=== PATIENT | male | born 1940 | race Hispanic/Latino ===

== ENCOUNTER 2017-11-01 15:28 | Inpatient (IN) | payer MEDICARE ==
--- NOTE | 2017-11-01 16:00 | ED PDOC ---
Arrival/HPI - General Chief Complaint: Trauma Time Seen by Provider: 11/01/17 15:52 Historian: Patient (`) - History of Present Illness Narrative History of Present Illness (Text): 11/01/17 15:58 77yo male with pmhx of hypertension, Diabetes, CAD on anticoagulant who was bib EMS for right hip pain s/p trauma. Patient states he is not sure of how he fell and injured his right hip. He describes pain as soreness. States he is not able to bear weight. He denies left shoulder pain, although he admitted to shoulder pain during triage. He denies hitting head anywhere. Denies LOC, nausea, focal weakness, urinary/fecal incontinence, dizziness, chest pain, any other complaint. Past Medical History - Provider Review Nursing Documentation Reviewed: Yes - Infectious Disease Hx of Infectious Diseases: None - Tetanus Immunization Tetanus Immunization: Unknown - Cardiac Hx Cardiac Disorders: Yes (cad) Hx Hypertension: Yes Other/Comment: quintuple bypass 2001 - Pulmonary Hx Respiratory Disorders: No - Neurological Hx Neurological Disorder: No - HEENT Hx HEENT Disorder: No - Renal Hx Renal Disorder: No - Endocrine/Metabolic Hx Endocrine Disorders: Yes Hx Diabetes Mellitus Type 2: Yes - Hematological/Oncological Hx Blood Disorders: No - Integumentary Hx Dermatological Disorder: No - Musculoskeletal/Rheumatological Hx Falls: No - Gastrointestinal Hx Gastrointestinal Disorders: No - Genitourinary/Gynecological Hx Genitourinary Disorders: No - Psychiatric Hx Psychophysiologic Disorder: No Hx Depression: No Hx Emotional Abuse: No Hx Physical Abuse: No Hx Substance Use: No - Surgical History Hx Coronary Artery Bypass Graft: Yes Hx Coronary Stent: Yes (x1 6 yrs ago) - Anesthesia Hx Anesthesia: Yes Hx Anesthesia Reactions: No Hx Malignant Hyperthermia: No - Suicidal Assessment Feels Threatened In Home Enviroment: No Family/Social History - Physician Review Nursing Documentation Reviewed: Yes Family/Social History: Unknown Family HX Smoking Status: Former Smoker Hx Alcohol Use: No Hx Substance Use: No Hx Substance Use Treatment: No Allergies/Home Meds Allergies/Adverse Reactions: Allergies No Known Allergies Allergy (Verified 12/04/14 11:13) Home Medications: Home Meds Medication Instructions Recorded Confirmed Allopurinol 100 mg PO DAILY 07/03/13 12/04/14 Aspirin [Aspir 81] 1 tab PO DAILY 07/03/13 12/04/14 Atorvastatin [Lipitor] 40 mg PO DAILY 07/03/13 12/04/14 Clopidogrel [Plavix] 75 mg PO DAILY 07/03/13 12/04/14 GlipiZIDE [Glucotrol] 10 mg PO BID 07/03/13 12/04/14 Hydrochlorothiazide/Losartan 1 tab PO DAILY 07/03/13 12/04/14 [Losartan 50MG/HCTZ 12.5MG] Metformin HCl 500 mg PO BID 07/03/13 12/04/14 Metoprolol Succinate XL [Toprol XL] 50 mg PO DAILY 07/03/13 12/04/14 Saxagliptin HCl [Onglyza] 5 mg PO DAILY 07/03/13 12/04/14 Cholecalciferol (Vitamin D3) 5,000 iu PO DAILY 02/23/14 12/04/14 [Vitamin D3] Folic Acid 0.4 mg PO DAILY 02/23/14 12/04/14 Iron [Slow Fe] 0 mg PO DAILY 02/23/14 12/04/14 Review of Systems - Physician Review All systems were reviewed & negative as marked: Yes - Review of Systems Constitutional: Normal Eyes: Normal ENT: Normal Respiratory: Normal Cardiovascular: Normal Gastrointestinal: Normal Genitourinary Male: Normal Musculoskeletal: Arthralgias (Right hip pain) Skin: Normal Neurological: Normal Endocrine: Normal Hemo/Lymphatic: Normal Psychiatric: Normal Physical Exam Vital Signs Reviewed: Yes Vital Signs Temp Pulse Resp BP Pulse Ox 11/01/17 20:04 57 L 17 133/56 L 96 11/01/17 18:04 97.8 F 54 L 18 131/64 99 11/01/17 15:50 97.5 F L 63 16 151/64 H 95 Temperature: Afebrile Blood Pressure: Normal Pulse: Regular Respiratory Rate: Normal Appearance: Positive for: Well-Appearing, Non-Toxic, Comfortable Pain Distress: None Mental Status: Positive for: Alert and Oriented X 3 Finger Stick Blood Glucose: 184 - Systems Exam Head: Present: Atraumatic, Normocephalic Pupils: Present: PERRL Extroacular Muscles: Present: EOMI Conjunctiva: Present: Normal Mouth: Present: Moist Mucous Membranes Neck: Present: Normal Range of Motion Respiratory/Chest: Present: Clear to Auscultation, Good Air Exchange. No: Respiratory Distress, Accessory Muscle Use Cardiovascular: Present: Regular Rate and Rhythm, Normal S1, S2. No: Murmurs Abdomen: No: Tenderness, Distention, Peritoneal Signs Back: Present: Normal Inspection Upper Extremity: Present: Normal Inspection. No: Cyanosis, Edema Lower Extremity: Present: NORMAL PULSES, Normal ROM, Deformity (Right foot externally rotated), Neurovascularly Intact. No: Edema, Tenderness, Swelling, Temperature Abnormalties Neurological: Present: GCS=15, CN II-XII Intact, Speech Normal Skin: Present: Warm, Dry, Normal Color, Abrasion (Right posterior proximal forearm). No: Rashes Psychiatric: Present: Alert, Oriented x 3, Normal Insight, Normal Concentration Medical Decision Making ED Course and Treatment: 11/01/17 18:16 77yo male bib by EMS for right hip pain s/p trauma. Pt was neurologically intact and hemodynamcially stable in ED. He was seen as soon as he arrived in ED and analgesic was offered to him but he declined any pain medication, stating he only have soreness to the hip area. Lab was ordered and hyperkalemia 7.2 and Cr of 3.1 was noted. The only lab for comparison was from 2014 and his Cr was wnl at that time. On further questioning the who was by the bedside states patient sees a [employer]. Cocktail of medication was ordered for the hyperkalemia. Pt have no EKG changes EKG Sinus ann with 1st degree AV block @ 55bpm NSTEMI. Case was RAVINDRA becerra who accepted pt for admission Hip Xray FINDINGS: A complete fracture of the right femoral neck base DYLAN above the trochanters is suggested. The femoral head remains in the acetabulum. Background osteoarthrosis here as well as in the left hip is noted. No left hip fracture noted. The morphology of the left femoral neck superolateral aspect is compatible with a femoral acetabular impingement. Atherosclerotic vascular calcifications present. . IMPRESSION: Right femoral neck base fracture nondisplaced. Comments: Right femoral neck base fracture findings discussed directly with the Cresencio CORDON within the [facility] Emergency Room on 11/01/2017 at 4 :55 p.m. Xray result was DW the pt and the requested that pt be transferred to [place] after stabilization of his medical problems to Dr. Yao, orthopedist who goes to [facility]. However for now pt will be admitted for medical stabilization. They agreed with the admission plan. 11/01/17 20:20 Repeat CMP show improved potassium and CR s/p treatment. - Lab Interpretations Lab Results: 11/01/17 16:03 11/01/17 16:03 Lab Results 11/01/17 16:03: Sodium 143, Potassium 7.2 H* D, Chloride 112 H, Carbon Dioxide 21, Anion Gap 17, BUN 59 H, Creatinine 3.1 H, Est GFR ( Amer) 24, Est GFR (Non-Af Amer) 20, Random Glucose 162 H, Calcium 9.3, Total Bilirubin 0.6, AST 37, ALT 31, Alkaline Phosphatase 107, Lactate Dehydrogenase 757 H, Total Creatine Kinase 209, Troponin I < 0.01, Total Protein 6.5, Albumin 3.7, Globulin 2.8, Albumin/Globulin Ratio 1.3 11/01/17 16:03: PT 12.1, INR 1.06 11/01/17 16:03: WBC 8.3 D, RBC 3.54, Hgb 11.6 L, Hct 34.7 L, MCV 98.0, MCH 32.8 , MCHC 33.4, RDW 14.4, Plt Count 136, MPV 11.1 H, Gran % 81.3 H, Lymph % (Auto) 13.1 L, Harper % (Auto) 4.5, Eos % (Auto) 1.0 L, Baso % (Auto) 0.1, Gran # 6.72 H , Lymph # (Auto) 1.1 L, Harper # (Auto) 0.4, Eos # (Auto) 0.1, Baso # (Auto) 0.01 - RAD Interpretation Radiology Orders: 11/01/17 15:53 HEAD W/O CONTRAST [CT] Stat Hip Bilateral [HIP MIN 3V W/ PELVIS LOTTIE] [RAD] Stat - Medication Orders Current Medication Orders: Discontinued Medications Albuterol Sulfate (Albuterol 0.083% Inhal Jaelyn (2.5 Mg/3 Ml) Ud) 10 mg INH STAT STA Stop: 11/01/17 17:10 Last Admin: 11/01/17 17:44 Dose: 10 mg Dextrose (Dextrose Inj 25%) 10 ml IV ONCE ONE Stop: 11/01/17 17:42 Last Admin: 11/01/17 18:07 Dose: 10 ml eMAR Start Stop Document 11/01/17 18:07 OCS (Rec: 07/17/18 18:08 OCS [email or web address] Intravenous Solution Start Date 11/01/17 Start Time 18:07 End Date 11/01/17 End time 18:09 Total Infusion Time 2 Calcium Gluconate 1,000 mg/ (Sodium Chloride) 110 mls @ 110 mls/hr IVPB ONCE ONE Stop: 11/01/17 18:03 Last Admin: 11/01/17 17:45 Dose: 110 mls/hr eMAR Start Stop Document 11/01/17 17:45 OCS (Rec: 11/01/17 17:45 OCS [email or web address]) Intravenous Solution Start Date 11/01/17 Start Time 17:45 End Date 11/01/17 End time 18:45 Total Infusion Time 60 Insulin Human Regular (Humulin R) 10 units IVP ONCE STA Stop: 11/01/17 17:11 Last Admin: 11/01/17 17:44 Dose: 10 units MAR Blood Glucose Document 11/01/17 17:44 OCS (Rec: 11/01/17 17:44 OCS [email or web address] Blood Glucose Finger Stick Blood Glucose (70-120) 184 IVP Administration Document 11/01/17 17:44 OCS (Rec: 11/01/17 17:44 OCS [email or web address] Charges for Administration # of IVP Administrations 1 Morphine Sulfate (Morphine) 4 mg IVP STAT STA Stop: 11/01/17 19:39 Last Admin: 11/01/17 19:45 Dose: 4 mg MAR Pain Assessment Document 11/01/17 19:45 OCS (Rec: 11/01/17 19:46 OCS [email or web address] Pain Reassessment Is this a pain reassessment? No Sleep Is patient sleeping during reassessment? No Presence of Pain Presence of Pain Yes Pain Scale Used Pain Scale Used Numeric Location Left, Right or Bilateral Right Pain Location Body Site Hip Description Description Constant Intensity of Pain at present 10 Aggravating Factors ADL's IVP Administration Document 11/01/17 19:45 OCS (Rec: 11/01/17 19:46 OCS [email or web address] Charges for Administration # of IVP Administrations 1 Sodium Polystyrene Sulfonate (Kayexalate Susp) 30 gm PO STAT STA Stop: 11/01/17 17:12 Last Admin: 11/01/17 17:43 Dose: 30 gm Disposition/Present on Arrival - Present on Arrival Any Indicators Present on Arrival: No History of DVT/PE: No History of Uncontrolled Diabetes: No Urinary Catheter: No History of Decub. Ulcer: No History Surgical Site Infection Following: None - Disposition Have Diagnosis and Disposition been Completed?: Yes Diagnosis: Hyperkalemia, Acute renal failure, Femur fracture, Abrasion of right arm Disposition: HOSPITALIZED Disposition Time: 17:00 Patient Plan: Admission Patient Problems: Current Active Problems Problem Status Onset Abrasion of right arm Acute Acute renal failure Acute Femur fracture Acute Hyperkalemia Acute Condition: STABLE
[2017-11-01 16:05] VITALS: BMI 40.3
[2017-11-01 16:11] LABS: BASO # 0.01 K/mm3 (0.0-2.0); BASO % 0.1 % (0.0-3.0); EOS # 0.1 (0.0-0.7); GRAN # 6.72 (1.4-6.5); GRAN % 81.3 % (50.0-68.0); HEMOGLOBIN 11.6 g/dL (14.0-18.0); LYMPH # 1.1 (1.2-3.4); LYMPH % 13.1 % (22.0-35.0); MEAN CORPUSCULAR HEMOGLOBIN 32.8 pg (25.0-35.0); MEAN CORPUSCULAR HGB CONC 33.4 g/dl (31.0-37.0); MEAN PLATELET VOLUME 11.1 fl (7.0-11.0); MONO # 0.4 (0.1-0.6); MONO % 4.5 % (1.0-6.0); RBC 3.54 10^6/uL (3.5-6.1); RED CELL DISTRIBUTION WIDTH 14.4 % (11.5-14.5); WHITE BLOOD COUNT 8.3 10^3/ul (4.5-11.0)
[2017-11-01 16:19] LABS: INR 1.06 (0.93-1.08); PROTHROMBIN TIME 12.1 SECONDS (9.4-12.5)
[2017-11-01 16:26] LABS: ALB/GLOB RATIO 1.3 (1.1-1.8); ALBUMIN 3.7 g/dL (3.0-4.8); ALT/SGPT 31 U/L (7-56); AST/SGOT 37 U/L (17-59); BLOOD UREA NITROGEN 59 mg/dL (7-21); CALCIUM 9.3 mg/dL (8.4-10.5); GFR AFRICAN-AMERICAN 24; GFR NON-AFRICAN AMERICAN 20
[2017-11-01 16:40] LABS: TROPONIN I < 0.01 ng/mL
--- NOTE | 2017-11-01 16:46 | CT ---
Date of service: 11/01/2017 PROCEDURE: CT HEAD WITHOUT CONTRAST. HISTORY: s/p trauma COMPARISON: None available. TECHNIQUE: Axial computed tomography images were obtained through the head/brain without intravenous contrast. Radiation dose: Total exam DLP = 900 mGy-cm. This CT exam was performed using one or more of the following dose reduction techniques: Automated exposure control, adjustment of the mA and/or kV according to patient size, and/or use of iterative reconstruction technique. FINDINGS: HEMORRHAGE: No intracranial hemorrhage. BRAIN: No mass effect or edema. There is generalized cerebral atrophy present. Bilateral basal ganglion lacune and concomitant superior/periventricular probably chronic microvascular ischemic changes. VENTRICLES: Unremarkable. No hydrocephalus. CALVARIUM: Unremarkable. PARANASAL SINUSES: Unremarkable as visualized. No significant inflammatory changes. MASTOID AIR CELLS: Unremarkable as visualized. No inflammatory changes. OTHER FINDINGS: Atherosclerotic vascular calcifications vertebrobasilar and supraclinoid ICAs IMPRESSION: No intracranial hemorrhage or mass effect. No calvarial fracture. There is generalized cerebral atrophy present. Bilateral basal ganglion lacune and concomitant superior/periventricular probably chronic microvascular ischemic changes.
--- NOTE | 2017-11-01 16:57 | RAD ---
Date of service: 11/01/2017 PROCEDURE: HISTORY: right hip pain s/p trauma COMPARISON: None TECHNIQUE: AP view of the pelvis and applicable frog leg views obtained. FINDINGS: A complete fracture of the right femoral neck base DYLAN above the trochanters is suggested. The femoral head remains in the acetabulum. Background osteoarthrosis here as well as in the left hip is noted. No left hip fracture noted. The morphology of the left femoral neck superolateral aspect is compatible with a femoral acetabular impingement. Atherosclerotic vascular calcifications present. . IMPRESSION: Right femoral neck base fracture nondisplaced. Comments: Right femoral neck base fracture findings discussed directly with the Cresencio CORDON within the [facility] Room on 11/01/2017 at 4:55 p.m.
[2017-11-01] MEDS ORDERED: Albuterol 0.083% Inhal Sol (2.5 mg/3 mL) UD INH STA ×2 (17:07→17:09)
[2017-11-01] MEDS ORDERED: Insulin Regular 1 UNITS/0.01 ML ML IVP STA (17:10)
[2017-11-01] MEDS ORDERED: Sod Polystyrene Sulf 15 gm/60 ml Susp PO STA (17:11)
[2017-11-01] MEDS ORDERED: Dextrose 25% Inj (10ml) IV ONE (17:41)
[2017-11-01] MEDS ORDERED: Morphine 4 mg/ml ISec IVP STA (19:38)
[2017-11-01 19:56] LABS: ALB/GLOB RATIO 1.4 (1.1-1.8); CALCIUM 9.8 mg/dL (8.4-10.5)
[2017-11-01] MEDS: Dextrose 5%/0.9% NS 1,000 ML IV SCH (22:17)
[2017-11-02 06:03] VITALS: O2SAT 90
[2017-11-02 06:39] LABS: HEMOGLOBIN 10.5 g/dL (14.0-18.0); MEAN CELL VOLUME 98.8 fl (80.0-105.0); MEAN CORPUSCULAR HEMOGLOBIN 31.7 pg (25.0-35.0); MEAN CORPUSCULAR HGB CONC 32.1 g/dl (31.0-37.0); MEAN PLATELET VOLUME 11.5 fl (7.0-11.0); RBC 3.31 10^6/uL (3.5-6.1); RED CELL DISTRIBUTION WIDTH 14.5 % (11.5-14.5)
[2017-11-02 06:52] LABS: IRON 38 ug/dL (45-180)
[2017-11-02 07:02] LABS: % IRON SATURATION 14 % (20-55); TOTAL IRON BINDING CAPACITY 277 ug/dL (261-462)
[2017-11-02 07:09] LABS: ALB/GLOB RATIO 1.3 (1.1-1.8); ALBUMIN 3.3 g/dL (3.0-4.8); CALCIUM 8.8 mg/dL (8.4-10.5)
[2017-11-02 07:34] LABS: URINE BILIRUBIN NEGATIVE (NEGATIVE); URINE BLOOD NEGATIVE (NEGATIVE); URINE GLUCOSE (UA) NEGATIVE (NEGATIVE); URINE LEUKOCYTE ESTERASE NEGATIVE Leu/uL (NEGATIVE); URINE PROTEIN 30 mg/dL (<30 mg/dL); URINE UROBILINOGEN 0.2 E.U./dL (<1 E.U./dL)
[2017-11-02 07:35] LABS: URINE APPEARANCE CLEAR (CLEAR); URINE COLOR DARK YELLOW (YELLOW)
[2017-11-02 07:39] LABS: URINE RBC NEGATIVE /hpf (0-2); URINE WBC NEGATIVE /hpf (0-6)
[2017-11-02 07:40] LABS: URINE HYALINE CAST 0 - 2 /hpf
[2017-11-02] MEDS ORDERED: Sod Polystyrene Sulf 15 gm/60 ml Susp PO ONE (07:57)
[2017-11-02] MEDS: Morphine 4 mg/ml ISec IVP PRN ×2 (08:55→14:25)
--- NOTE | 2017-11-02 08:58 | RAD ---
Date of service: 11/01/2017 HISTORY: admission COMPARISON: 02/23/2014. FINDINGS: LUNGS: The lungs are clear. PLEURA: No significant pleural effusion identified, no pneumothorax apparent. CARDIOVASCULAR: There is moderate cardiomegaly. Status post CABG. OSSEOUS STRUCTURES: No significant abnormalities. VISUALIZED UPPER ABDOMEN: Normal. OTHER FINDINGS: None. IMPRESSION: No active pulmonary disease.
[2017-11-02 12:08] LABS: FERRITIN 65.1 ng/mL
[2017-11-02 12:21] VITALS: BP 159/72; PULSE 57; RESP 20; TEMP 98.1
--- NOTE | 2017-11-02 12:22 | CARD ---
APPROVED REPORT Date of service: 11/01/2017 EKG Measurement Heart [id number] <Conclusion> Sinus bradycardia with 1st degree AV block Inferior infarct, age Probably Old. Abnormal ECG
[2017-11-02] MEDS: Dextrose 5%/0.9% NS 1,000 ML IV SCH (13:45)
[2017-11-02] MEDS ORDERED: Morphine 5 MG/ML SYRINGE IVP STA (15:40)
[2017-11-02] MEDS ORDERED: Morphine 2 mg/ml ISec IVP STA (15:49)
[2017-11-02] MEDS ORDERED: Morphine 4 mg/ml ISec IVP ONE (16:00)
--- NOTE | 2017-11-02 16:23 | CON ---
DATE: 11/02/2017 ORTHOPEDIC CONSULTATION HISTORY OF PRESENT ILLNESS: This is a 77-year-old male, Phil Mccoy in room 267, bed 1. His history is that he fell yesterday and fractured his right hip. It shows a displaced sub capital rt hip fracture and he is 77 years old. The wants him to go to [facility] under the care of Dr. Thomas Gilliam who operated on the last month, so she is going to make arrangements to send him to [facility] under Dr. Gilliam's service, the orthopedic doctor. He is quite able to be transferred without any undo problems and will be evaluated again over at [facility] to arrange for surgery as soon as possible, not today, but hopefully toward the end of the week for a right hip bipolar prosthesis. Sunny Lobato DO MTDD
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
--- NOTE | 2017-11-02 18:59 | CON ---
DATE: 11/02/2017 CARDIOLOGY CONSULTATION HISTORY OF PRESENT ILLNESS: The patient is a 77-year-old male who presents after a fall with hip pain. X-ray of the hip reveals the right femoral right femoral neck fracture. The patient is scheduled for surgery. PAST MEDICAL HISTORY: Includes a history of coronary bypass surgery as well as PTCA and stent of the carotid arteries performed in [facility]. In addition, he suffers from diabetes mellitus, hypertension, hypercholesterolemia as well as chronic renal failure. 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 He also is aware of a regurgitation and valvular heart disease, which at this time does not require surgical intervention. SOCIAL HISTORY: The patient does not smoke. REVIEW OF SYSTEMS: No dyspnea. No angina. No edema in the lower extremities noted, although the lower extremities are weak and he has undergone peripheral vascular evaluation. PHYSICAL EXAMINATION: VITAL SIGNS: Blood pressure varies from 136 to 173, heart rate is in the 60s. NECK: Negative JVD. LUNGS: Without rales. HEART: Reveals S1, S2 with decreased heart sounds. EXTREMITIES: Without edema. LABORATORY DATA: EKG shows nonspecific ST-T changes. Hemoglobin is 10.3. Chemistries: BUN and creatinine are 57 and 3. His potassium is down from 7.2 to 5.4 to 5.7 today. IMPRESSION: 1. Status post hip fracture. 2. Status post fall. 3. Stable angina. 4. History of coronary artery bypass surgery. 5. History of carotid stenting. 6. Diabetes mellitus. 7. Renal insufficiency. 8. Hypertension. 9. Hypercholesterolemia. The patient has been treated medically for his hyperkalemia. There are no active cardiac issues at this time. The patient is at moderate cardiac risk for his planned hip surgery. Dario Harris MD
== END 2017-11-02 16:24 | disposition short-term general hospital (02) | DRG 682 ==
LOC: ED 15:28 → ERH 19:04 → 2RNO 21:17
PROVIDERS: ADMIT Internal Medicine Nephrology; ATTEND Internal Medicine Nephrology
DX: N17.9 Acute kidney failure, unspecified (principal); S72.001A Fracture of unspecified part of neck of right femur, initial encounter for closed fracture; I38 Endocarditis, valve unspecified; E87.5 Hyperkalemia; I12.9 Hypertensive chronic kidney disease with stage 1 through stage 4 chronic kidney disease, or unspecified chronic kidney disease; N18.9 Chronic kidney disease, unspecified; E11.22 Type 2 diabetes mellitus with diabetic chronic kidney disease; E78.00 Pure hypercholesterolemia, unspecified; I25.118 Atherosclerotic heart disease of native coronary artery with other forms of angina pectoris; S40.811A Abrasion of right upper arm, initial encounter; W01.0XXA Fall on same level from slipping, tripping and stumbling without subsequent striking against object, initial encounter; I44.0 Atrioventricular block, first degree; Z79.02 Long term (current) use of antithrombotics/antiplatelets; Z79.82 Long term (current) use of aspirin; Z79.899 Other long term (current) drug therapy; Z95.1 Presence of aortocoronary bypass graft; Z95.5 Presence of coronary angioplasty implant and graft; R40.2412 Glasgow coma scale score 13-15, at arrival to emergency department